=== PATIENT | male | born 1975 | race Caucasian/White ===

== ENCOUNTER 2016-12-06 16:41 | Emergency (ER) | payer OTHER | END 2016-12-06 19:05 | disposition home or self-care (01) | LOC: ER1 16:41 | DX: J40 Bronchitis, not specified as acute or chronic (principal); F17.290 Nicotine dependence, other tobacco product, uncomplicated; Z90.49 Acquired absence of other specified parts of digestive tract | CPT/HCPCS: 87081; 87880; 99283 ==

== ENCOUNTER 2020-11-22 23:13 | Emergency (ER) | payer OTHER ==
[~2020-11-22 23:13] MED LIST: BACITRACIN3.5 GM TOP; BACTRIM DS TAB1 EACH PO; BACTROBAN CREAM15 GM TOP; CIPRO500 MG PO; CLINDAMYCIN HC300 MG PO; CORTIZONE 1028 GM TP; IBU600 MG PO; IBUPROFEN600 MG PO; IBUPROFEN800 MG PO; KEFLEX500 MG PO; NEOSPORIN OINT30 GM EXT; PREDNISONE 20 M20 MG PO; TOPICAINE 530 GM TP; TORADOL 10 MG T10 MG PO; VIBRAMYCIN100 MG PO; ZOVIRAX 800 MG800 MG PO
[2020-11-22] MEDS ORDERED: CLINDAMYCIN HC300 MG PO (23:44)
== END 2020-11-23 | disposition home or self-care (01) ==
LOC: ER1 23:13
DX: S70.311A Abrasion, right thigh, initial encounter (principal); S80.211A Abrasion, right knee, initial encounter; S80.212A Abrasion, left knee, initial encounter; S50.812A Abrasion of left forearm, initial encounter; S50.811A Abrasion of right forearm, initial encounter; S30.811A Abrasion of abdominal wall, initial encounter; F19.10 Other psychoactive substance abuse, uncomplicated; Z88.8 Allergy status to other drugs, medicaments and biological substances; Z88.0 Allergy status to penicillin; X58.XXXA Exposure to other specified factors, initial encounter; F17.290 Nicotine dependence, other tobacco product, uncomplicated
CPT/HCPCS: 96372; 99283; J1885

== ENCOUNTER 2021-06-20 15:22 | Emergency (ER) | payer OTHER ==
[2021-06-20 16:39] LABS: RED BLOOD COUNT 4.53 M/UL (4.20-5.50); WHITE BLOOD COUNT 9.8 K/UL (4.5-11.0)
[2021-06-20 17:11] LABS: BUN/CREATININE RATIO 13 (0-10)
[2021-06-20] MEDS ORDERED: TORADOL 10 MG T10 MG PO (18:03)
[2021-06-20] MEDS ORDERED: CEPHALEXIN500 M1 PO (18:03)
== END 2021-06-20 18:30 | disposition home or self-care (01) ==
LOC: ER1 15:22
PROVIDERS: Physician Assistant
DX: S80.262A Insect bite (nonvenomous), left knee, initial encounter (principal); L03.116 Cellulitis of left lower limb; F17.220 Nicotine dependence, chewing tobacco, uncomplicated; Z90.49 Acquired absence of other specified parts of digestive tract; Z88.0 Allergy status to penicillin; W57.XXXA Bitten or stung by nonvenomous insect and other nonvenomous arthropods, initial encounter
CPT/HCPCS: 73502; 73562; 80053; 82550; 84550; 85025; 85379; 85652; 96374; 99283; J1885